=== PATIENT | male | born 1970 | race Caucasian/White ===

== ENCOUNTER 2019-12-16 13:03 | Emergency (ER) | payer OTHER ==
[2019-12-16 13:15] VITALS: BP 157/90
--- NOTE | 2019-12-16 13:22 | REPVR ---
PROCEDURE INFORMATION: Exam: CT Head Without Contrast Exam date and time: 12/16/2019 1:10 PM Age: 48 years old Clinical indication: Speech disturbance; Slurred speech; Additional info: Slurred speech, facial droop TECHNIQUE: Imaging protocol: Computed tomography of the head without contrast. Radiation optimization: All CT scans at this facility use at least one of these dose optimization techniques: automated exposure control; mA and/or kV adjustment per patient size (includes targeted exams where dose is matched to clinical indication); or iterative reconstruction. Other technique: STROKE PROTOCOL was implemented. COMPARISON: No relevant prior studies available. FINDINGS: Brain: No acute intracranial hemorrhage, cerebral edema, or midline shift. Cerebral ventricles: No ventriculomegaly. Bones/joints: No acute fracture. Paranasal sinuses: Visualized sinuses are unremarkable. No fluid levels. Mastoid air cells: Visualized mastoid air cells are well aerated. Vasculature: A branch of the left middle cerebral artery is hyperdense (insular dot sign), compatible with acute thrombosis. Soft tissues: Unremarkable. IMPRESSION: 1. A branch of the left middle cerebral artery is hyperdense (insular dot sign), compatible with acute thrombosis. 2. [facility] [place] Stroke Program Early CT Score (ASPECTS) = 10 Electronically signed by: Moe De La Cruz On 12/16/2019 13:22:05 PM
[2019-12-16] MEDS ORDERED: DOXY100C PO (13:29)
[2019-12-16 13:32] VITALS: BP 157/90
[2019-12-16 13:38] LABS: BASO % 0.5 % (0.0-1.0); EOS # 0.1 10^3/uL (0.0-0.5); EOS % 1.1 % (0.0-3.0); HEMATOCRIT 45.9 % (42.0-52.0); LYMPH # 3.4 10^3/uL (1.5-5.0); MEAN CORPUSCULAR HEMOGLOBIN 31.8 pg (27.0-33.0); MEAN CORPUSCULAR HGB CONC 34.9 g/dl (32.0-36.5); MEAN CORPUSCULAR VOLUME 91.3 fl (80.0-96.0); MONO # 0.6 10^3/uL (0.0-0.8); MONO % 7.6 % (0.0-5.0); NEUTROPHILS # 4.1 10^3/uL (1.5-8.5); NEUTROPHILS % 49.4 % (36.0-66.0); PLATELET COUNT, AUTOMATED 195 10^3/uL (150-450); RED BLOOD COUNT 5.03 10^6/uL (4.30-6.10); WHITE BLOOD COUNT 8.3 10^3/uL (4.0-10.0)
--- NOTE | 2019-12-16 13:41 | REPVR ---
PROCEDURE INFORMATION: Exam: XR Chest, 1 View Exam date and time: 12/16/2019 1:17 PM Age: 48 years old Clinical indication: Pain; Other: Question of CVA TECHNIQUE: Imaging protocol: XR of the chest Views: 1 view. COMPARISON: No relevant prior studies available. FINDINGS: Lungs: Unremarkable. No consolidation. Pleural space: Unremarkable. No pleural effusion. No pneumothorax. Heart/Mediastinum: Unremarkable. No cardiomegaly. Bones/joints: Unremarkable. IMPRESSION: No acute findings. Electronically signed by: Moe De La Cruz On 12/16/2019 13:41:27 PM
[2019-12-16 13:45] VITALS: BP 137/80
[2019-12-16] MEDS ORDERED: ALTEPLASE 100MG VIAL IV ONE (13:45)
[2019-12-16] MEDS ORDERED: ALTEPLASE RECOMBINANT IV ONE (13:45)
[2019-12-16] MEDS ORDERED: ALTEPLASE 100MG VIAL As Ordered ONE (13:46)
[2019-12-16 13:55] LABS: INR 0.91; PROTHROMBIN TIME 12.4 SECONDS (12.5-14.3)
[2019-12-16 13:56] LABS: PARTIAL THROMBOPLASTIN TIME 22.3 SECONDS (24.2-38.5)
[2019-12-16 14:01] VITALS: BP 149/73
[2019-12-16 14:09] LABS: CK-MB VALUE MASS < 1.0 NG/ML (<3.6); CPK CREATINE PHOSPHOKINASE 98 U/L (39-308); MB/CK RELATIVE INDEX 1.02 (< OR =4); TROPONIN I 0.02 NG/ML (< 0.10)
[2019-12-16 14:12] VITALS: BP 149/73
[2019-12-16] MEDS ORDERED: SODIUM CHLORIDE 0.9% 50 ML IV ONE (14:45)
--- NOTE | 2019-12-17 06:39 | ECGEPIP ---
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
== END 2019-12-16 14:15 | disposition short-term general hospital (02) ==
LOC: M ED 13:03
DX: I63.30 Cerebral infarction due to thrombosis of unspecified cerebral artery (principal); R00.0 Tachycardia, unspecified; F17.200 Nicotine dependence, unspecified, uncomplicated
CPT/HCPCS: 70450; 71045; 80047; 82550; 82553; 84484; 85025; 85610; 85730; 86850; 86900; 86901; 93005; 93041; 94760; 99285; J2997

== ENCOUNTER → 2020-03-08 | Outpatient (RCR) | payer OTHER ==
[~2020-03-08] MED LIST: DOXY100C PO
== END ==
LOC: M PT 02-20 08:55 → M OT 02-20 10:00 → M ST 02-20 11:00 → M OT 02-23 13:00 → M PT 02-23 13:45 → M ST 02-28 12:00 → M OT 02-28 13:00 → M PT 02-28 13:45 → M ST 03-01 10:22 → M PT 03-01 11:30 → M ST 03-06 12:00 → M OT 03-06 13:00 → M PT 03-06 14:15 → M ST 11:49 → M OT 13:00 → M PT 14:15
PROVIDERS: ATTEND Nurse Practitioner Family
DX: Z51.89 Encounter for other specified aftercare (principal); G81.91 Hemiplegia, unspecified affecting right dominant side; I63.9 Cerebral infarction, unspecified; R47.01 Aphasia

== ENCOUNTER 2020-04-05 13:28 | Outpatient (RCR) | payer OTHER | END 2020-04-08 | LOC: M PT 13:28 | PROVIDERS: ATTEND Nurse Practitioner Family | DX: G81.91 Hemiplegia, unspecified affecting right dominant side (principal); I63.9 Cerebral infarction, unspecified; R47.01 Aphasia ==

== ENCOUNTER → 2020-04-06 | Outpatient (CLI) | payer OTHER ==
--- NOTE | 2020-04-06 13:22 | REPPI ---
INDICATION: R29.898 RIGHT ARM WEAKNESS. COMPARISON: None. TECHNIQUE: Three views of the right shoulder are presented. FINDINGS: The right glenohumeral and acromioclavicular joints are normally aligned. Periarticular soft tissues are unremarkable. No erosive changes seen. No fracture is noted. Visualized right rib cage is intact. IMPRESSION: Negative radiographs of the right shoulder. <Electronically signed by Haresh Fleming > 04/06/20 0402
== END ==
LOC: M PLAIMG 10:38
PROVIDERS: ATTEND Nurse Practitioner Family
DX: R29.898 Other symptoms and signs involving the musculoskeletal system (principal)

== ENCOUNTER 2020-05-03 13:45 | Outpatient (RCR) | payer OTHER | END 2020-05-06 | LOC: M PT 13:45 | PROVIDERS: ATTEND Nurse Practitioner Family | DX: G81.91 Hemiplegia, unspecified affecting right dominant side (principal); I63.9 Cerebral infarction, unspecified; R47.01 Aphasia ==

== ENCOUNTER → 2020-05-04 | Outpatient (REF) | payer OTHER ==
[2020-05-04 12:35] LABS: ALBUMIN 4.6 GM/DL (3.2-5.2); ALT/SGPT 40 U/L (12-78); BILIRUBIN,TOTAL 0.5 MG/DL (0.2-1.0); BLOOD UREA NITROGEN 12 MG/DL (7-18); CALCIUM LEVEL 9.5 MG/DL (8.5-10.1); CARBON DIOXIDE LEVEL 29 MEQ/L (21-32); CHLORIDE LEVEL 106 MEQ/L (98-107); CHOLESTEROL LEVEL 111 MG/DL (<200); CHOLESTEROL RISK RATIO 2.265 (<5); CREATININE FOR GFR 0.74 MG/DL (0.70-1.30); FREE T4 1.06 NG/DL (0.76-1.46); GLOMERULAR FILTRATION RATE > 60.0 (>56); GLUCOSE, FASTING 101 MG/DL (70-100); HDL CHOLESTEROL 49 MG/DL (>40); LDL CHOLESTEROL 51 MG/DL (<100); NON-HDL-C 62 MG/DL; SODIUM LEVEL 141 MEQ/L (136-145); TOTAL PROTEIN 7.3 GM/DL (6.4-8.2); TRIGLYCERIDES LEVEL 55 MG/DL (<150)
[2020-05-04 13:27] LABS: HEMOGLOBIN A1c 5.8 %
[2020-05-07 19:06] LABS: C-PEPTIDE 1.5 ng/mL (1.1-4.4); ISLET CELL ANTIBODIES Negative (Neg:<1:1)
== END ==
LOC: M PLALAB 08:03
PROVIDERS: ATTEND Nurse Practitioner Family
DX: E11.9 Type 2 diabetes mellitus without complications (principal); E78.5 Hyperlipidemia, unspecified

== ENCOUNTER → 2020-05-15 | Outpatient (CLI) | payer OTHER ==
[~2020-05-15] MED LIST changes: +PROHANCE 279.3MG/ML 15ML VIAL As Ordered ONE
--- NOTE | 2020-05-15 09:44 | REP ---
INDICATION: RT SHOULDER INJURY. COMPARISON: Radiographs 04/06/2020. TECHNIQUE: Coronal oblique T1, T2 fat sat, sagittal oblique T2 fat sat, axial T2 fat sat, gradient echo. T1 fat sat in multiple planes prior to and following the intravenous administration of 15 mL ProHance. FINDINGS: Rotator cuff: There is a full-thickness tear at the anterior distal supraspinatus tendon. No other rotator cuff tendon tear is seen. Acromioclavicular joint: Mild hypertrophic degenerative changes are seen of the acromioclavicular joint with mild fluid in the joint. Acromion: Type 2 Biceps Tendon: In bicipital groove, there is mild surrounding fluid. Hill Sach's deformity: None. Deltoid muscle: No abnormal signal. Biceps labral complex: There is fraying and partial tearing of the biceps labral complex. Labrum: There is a diffuse SLAP tear, and a diffuse tear of the inferior labrum. Cartilage: There is mild chondromalacia at the glenohumeral joint. Bone marrow: There is a tiny subcortical subcentimeter cyst superolateral humeral head. No bone marrow edema is seen. Joint fluid: There is a very small joint effusion. There is a small amount of fluid in the subacromial/subdeltoid bursae. There is no abnormal enhancement or enhancing mass. IMPRESSION: Full-thickness tear anterior distal supraspinatus tendon. Fraying and partial tearing of the biceps labral complex with a diffuse SLAP tear. Diffuse tear of inferior labrum. Small amount of fluid in the subacromial/subdeltoid bursae. <Electronically signed by Alexy Romero > 05/15/20 0941
== END ==
LOC: M RAD 06:19
PROVIDERS: ATTEND Nurse Practitioner Family
DX: S46.211A Strain of muscle, fascia and tendon of other parts of biceps, right arm, initial encounter (principal); M75.121 Complete rotator cuff tear or rupture of right shoulder, not specified as traumatic
CPT/HCPCS: 73223; A9576

== ENCOUNTER 2020-06-05 13:44 | Outpatient (RCR) | payer OTHER ==
[~2020-06-05 13:44] MED LIST changes: -PROHANCE 279.3MG/ML 15ML VIAL As Ordered ONE
[2020-06-06] MEDS ORDERED: METF10004 PO (21:02)
[2020-06-06] MEDS ORDERED: ATOR80TA59 PO (21:02)
[2020-06-06] MEDS ORDERED: LANTINJ4 SC (21:02)
[2020-06-06] MEDS ORDERED: TIZA2CAP PO (21:02)
[2020-06-06] MEDS ORDERED: JARD1TAB PO (21:02)
[2020-06-06] MEDS ORDERED: ASPI81TA26 PO (21:02)
[2020-06-07] MEDS ORDERED: KEPP1TAB2 PO (01:17)
== END 2020-06-06 ==
LOC: M PT 13:44
PROVIDERS: ATTEND Nurse Practitioner Family
DX: G81.91 Hemiplegia, unspecified affecting right dominant side (principal); R47.01 Aphasia; M75.101 Unspecified rotator cuff tear or rupture of right shoulder, not specified as traumatic

== ENCOUNTER 2020-06-06 20:48 | Emergency (ER) | payer OTHER ==
[~2020-06-06] VITALS: Ht 175.3 cm; Wt 87.6 kg
[2020-06-06] MEDS ORDERED: ATOR80TA59 PO (21:02)
[2020-06-06] MEDS ORDERED: JARD1TAB PO (21:02)
[2020-06-06] MEDS ORDERED: METF10004 PO (21:02)
[2020-06-06] MEDS ORDERED: LANTINJ4 SC (21:02)
[2020-06-06] MEDS ORDERED: TIZA2CAP PO (21:02)
[2020-06-06] MEDS ORDERED: ASPI81TA26 PO (21:02)
[2020-06-06 21:30] LABS: BASO % 0.5 % (0.0-1.0); EOS # 0.1 10^3/uL (0.0-0.5); EOS % 1.6 % (0.0-3.0); HEMATOCRIT 44.8 % (42.0-52.0); HEMOGLOBIN 14.8 g/dl (13.5-17.5); LYMPH # 3.2 10^3/uL (1.5-5.0); LYMPH % 41.9 % (24.0-44.0); MEAN CORPUSCULAR VOLUME 93.9 fl (80.0-96.0); MONO # 0.7 10^3/uL (0.0-0.8); MONO % 8.9 % (2.0-8.0); NEUTROPHILS # 3.5 10^3/uL (1.5-8.5); PLATELET COUNT, AUTOMATED 202 10^3/uL (150-450); RED BLOOD COUNT 4.77 10^6/uL (4.30-6.10); WHITE BLOOD COUNT 7.5 10^3/uL (4.0-10.0)
[2020-06-06] MEDS ORDERED: levETIRAcetam INJection 1,000 MG in D5W 100 ML IV ONE (21:30)
[2020-06-06 21:40] LABS: INR 0.99; PROTHROMBIN TIME 13.3 SECONDS (12.5-14.3)
[2020-06-06 21:41] LABS: PARTIAL THROMBOPLASTIN TIME 22.5 SECONDS (24.2-38.5)
[2020-06-06 21:58] LABS: ALBUMIN 4.6 GM/DL (3.2-5.2); ALT/SGPT 49 U/L (12-78); BILIRUBIN,TOTAL 0.4 MG/DL (0.2-1.0); BLOOD UREA NITROGEN 14 MG/DL (7-18); CALCIUM LEVEL 9.6 MG/DL (8.5-10.1); CARBON DIOXIDE LEVEL 24 MEQ/L (21-32); CHLORIDE LEVEL 104 MEQ/L (98-107); CREATININE FOR GFR 0.93 MG/DL (0.70-1.30); ETHYL ALCOHOL (ETHANOL) < 0.003 % (0.000-0.010); GLOMERULAR FILTRATION RATE > 60.0 (>56); GLUCOSE, FASTING 139 MG/DL (70-100); POTASSIUM SERUM 4.5 MEQ/L (3.5-5.1); SODIUM LEVEL 139 MEQ/L (136-145); TOTAL PROTEIN 7.4 GM/DL (6.4-8.2)
--- NOTE | 2020-06-06 22:05 | REPVR ---
PROCEDURE INFORMATION: Exam: CT Head Without Contrast Exam date and time: 06/06/2020 9:42 PM Age: 49 years old Clinical indication: Other: Seizure TECHNIQUE: Imaging protocol: Computed tomography of the head without contrast. Radiation optimization: All CT scans at this facility use at least one of these dose optimization techniques: automated exposure control; mA and/or kV adjustment per patient size (includes targeted exams where dose is matched to clinical indication); or iterative reconstruction. COMPARISON: CT Head without contrast 12/16/2019 1:22 PM FINDINGS: Brain: New hypodensity within the left frontal lobe is likely encephalomalacia from an old left MCA infarct. There are calcifications within the area of encephalomalacia. An underlying neoplastic process is not excluded. Follow-up evaluation with CT or MRI is recommended. No shift of the midline structures. No acute intracranial hemorrhage. Cerebral ventricles: No ventriculomegaly. Bones/joints: Unremarkable. No acute fracture. Paranasal sinuses: Visualized sinuses are unremarkable. No fluid levels. Mastoid air cells: Visualized mastoid air cells are well aerated. Soft tissues: Unremarkable. IMPRESSION: 1. New hypodensity within the left frontal lobe with calcifications likely secondary to old left MCA infarct. An underlying neoplastic process is not completely excluded. Follow-up evaluation with CT or MRI is recommended. 2. No intracranial hemorrhage. Electronically signed by: Suman Erickson On 06/06/2020 22:05:54 PM
--- NOTE | 2020-06-06 22:06 | REPVR ---
PROCEDURE INFORMATION: Exam: XR Chest Exam date and time: 06/06/2020 9:09 PM Age: 49 years old Clinical indication: Other: Seizure TECHNIQUE: Imaging protocol: XR of the chest Views: 1 view. COMPARISON: CR PORTABLE CHEST X-RAY 12/16/2019 1:22 PM FINDINGS: Lungs: Unremarkable. No consolidation. Pleural spaces: Unremarkable. No pleural effusion. No pneumothorax. Heart/Mediastinum: Unremarkable. No cardiomegaly. Bones/joints: No acute bone or joint abnormality. IMPRESSION: No acute findings. Electronically signed by: Suman Erickson On 06/06/2020 22:06:39 PM
[2020-06-07 00:13] LABS: AMPHETAMINES LEVEL URINE NEGATIVE (NEGATIVE); BARBITURATES URINE NEGATIVE (NEGATIVE); BENZODIAZEPINES URINE NEGATIVE (NEGATIVE); CANNABINOIDS URINE NEGATIVE (NEGATIVE); COCAINE METABOLITE URINE NEGATIVE (NEGATIVE); METHADONE URINE NEGATIVE (NEGATIVE); OPIATES URINE NEGATIVE (NEGATIVE); PHENCYCLIDINE URINE NEGATIVE (NEGATIVE)
[2020-06-07] MEDS ORDERED: KEPP1TAB2 PO (01:17)
[2020-06-07 01:54] VITALS: BP 110/65
--- NOTE | 2020-06-07 07:14 | ECGEPIP ---
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
--- NOTE | 2020-06-08 09:00 | ED PDOC ---
Post-Departure Follow-Up ct head faxed to [facility] for fu Barbara Miguel MD Jun 08, 2020 09:00
== END 2020-06-07 02:02 | disposition home or self-care (01) ==
LOC: M ED 20:48
DX: R56.9 Unspecified convulsions (principal); Z86.73 Personal history of transient ischemic attack (TIA), and cerebral infarction without residual deficits; E78.5 Hyperlipidemia, unspecified; R94.02 Abnormal brain scan; Z79.4 Long term (current) use of insulin; Z79.82 Long term (current) use of aspirin; Z79.899 Other long term (current) drug therapy
CPT/HCPCS: 70450; 71045; 80053; 80307; 82077; 85025; 85610; 85730; 93005; 96365; 99285; J1953

== ENCOUNTER 2020-07-05 13:00 | Outpatient (RCR) | payer OTHER ==
[~2020-07-05 13:00] MED LIST changes: +ASPI81TA26 PO; +ATOR80TA59 PO; +JARD1TAB PO; +KEPP1TAB2 PO; +LANTINJ4 SC; +METF10004 PO; +TIZA2CAP PO
== END 2020-07-06 ==
LOC: M PT 13:00
PROVIDERS: ATTEND Nurse Practitioner Family
DX: I69.351 Hemiplegia and hemiparesis following cerebral infarction affecting right dominant side (principal); I69.320 Aphasia following cerebral infarction

== ENCOUNTER → 2020-07-27 | Outpatient (CLI) | payer OTHER ==
[2020-07-27 10:10] LABS: BLOOD UREA NITROGEN 14 MG/DL (7-18); CREATININE FOR GFR 0.79 MG/DL (0.70-1.30); GLOMERULAR FILTRATION RATE > 60.0 (>56)
== END ==
LOC: M LAB 08:23
PROVIDERS: ATTEND Psychiatry & Neurology Neurology
DX: I10 Essential (primary) hypertension (principal)

== ENCOUNTER 2020-08-02 13:45 | Outpatient (RCR) | payer OTHER, SELFPAY | END 2020-08-06 | LOC: M PT 13:45 | PROVIDERS: ATTEND Nurse Practitioner Family | DX: G81.91 Hemiplegia, unspecified affecting right dominant side (principal); I63.9 Cerebral infarction, unspecified; R47.01 Aphasia ==

== ENCOUNTER 2020-09-04 13:45 | Outpatient (RCR) | payer OTHER | END 2020-09-05 | LOC: M PT 13:45 | PROVIDERS: ATTEND Nurse Practitioner Family | DX: M75.101 Unspecified rotator cuff tear or rupture of right shoulder, not specified as traumatic (principal); G81.91 Hemiplegia, unspecified affecting right dominant side; I63.9 Cerebral infarction, unspecified; R47.01 Aphasia ==

== ENCOUNTER → 2020-09-07 | Outpatient (CLI) | payer OTHER ==
[~2020-09-07] MED LIST changes: +ASPI-161 PO; +INSULANT SC; +MULTCHW12 PO; +RA K500C PO; +TIZA6CAP PO
[2020-09-07 11:12] LABS: BLOOD UREA NITROGEN 15 MG/DL (7-18); CARBON DIOXIDE LEVEL 30 MEQ/L (21-32); CHLORIDE LEVEL 106 MEQ/L (98-107); CREATININE FOR GFR 0.59 MG/DL (0.70-1.30); GLOMERULAR FILTRATION RATE > 60.0 (>56); GLUCOSE, FASTING 113 MG/DL (70-100); POTASSIUM SERUM 4.2 MEQ/L (3.5-5.1); SODIUM LEVEL 143 MEQ/L (136-145)
[2020-09-07 11:13] LABS: ALBUMIN 4.4 GM/DL (3.2-5.2); ALT/SGPT 49 U/L (12-78); BILIRUBIN,TOTAL 0.6 MG/DL (0.2-1.0); CALCIUM LEVEL 9.4 MG/DL (8.5-10.1); CHOLESTEROL LEVEL 125 MG/DL (<200); CHOLESTEROL RISK RATIO 2.083 (<5); HDL CHOLESTEROL 60 MG/DL (>40); HEMOGLOBIN A1c 6.3 %; LDL CHOLESTEROL 53 MG/DL (<100); NON-HDL-C 65 MG/DL; TOTAL PROTEIN 7.2 GM/DL (6.4-8.2); TRIGLYCERIDES LEVEL 58 MG/DL (<150)
[2020-09-07 11:19] LABS: MALB URINE SIEMENS 13.1 MG/L; MAU/CREAT RATIO 10.3 MCG/MG (0.0-30.0)
== END ==
LOC: M PLALAB 08:07
PROVIDERS: ATTEND Nurse Practitioner Family
DX: E11.9 Type 2 diabetes mellitus without complications (principal); E78.5 Hyperlipidemia, unspecified; Z12.5 Encounter for screening for malignant neoplasm of prostate

== ENCOUNTER 2020-09-12 22:38 | Observation (INO) | payer OTHER ==
[~2020-09-12] VITALS: Ht 177.8 cm; Wt 76.3 kg
[~2020-09-12 22:38] MED LIST changes: -ASPI-161 PO; -DOXY100C PO; +DOXY100C3 PO; -INSULANT SC; -MULTCHW12 PO; -RA K500C PO; -TIZA6CAP PO
[2020-09-12] MEDS ORDERED: LORazepam 2 MG/ML VIAL As Ordered ONE (22:41)
[2020-09-12] MEDS ORDERED: NS 1,000 ML IV ONE (22:45)
[2020-09-12] MEDS ORDERED: LORazepam 2 MG/ML VIAL IM STA (22:45)
[2020-09-12] MEDS ORDERED: levETIRAcetam INJection 750 MG in D5W 100 ML IV ONE (22:45)
[2020-09-12 23:07] LABS: BASO # 0.1 10^3/uL (0.0-0.2); BASO % 0.4 % (0.0-1.0); EOS # 0.1 10^3/uL (0.0-0.5); HEMATOCRIT 50.5 % (42.0-52.0); LYMPH # 7.5 10^3/uL (1.5-5.0); LYMPH % 59.8 % (24.0-44.0); MEAN CORPUSCULAR HEMOGLOBIN 31.7 pg (27.0-33.0); MEAN CORPUSCULAR HGB CONC 31.7 g/dl (32.0-36.5); MEAN CORPUSCULAR VOLUME 100.2 fl (80.0-96.0); MONO # 1.2 10^3/uL (0.0-0.8); MONO % 9.3 % (2.0-8.0); NEUTROPHILS # 3.7 10^3/uL (1.5-8.5); NEUTROPHILS % 29.3 % (36.0-66.0); PLATELET COUNT, AUTOMATED 208 10^3/uL (150-450); RED BLOOD COUNT 5.04 10^6/uL (4.30-6.10)
[2020-09-12] MEDS ORDERED: LORazepam 2 MG/ML VIAL IV STA (23:08)
[2020-09-12 23:13] LABS: WHITE BLOOD COUNT 12.6 10^3/uL (4.0-10.0)
[2020-09-12 23:40] LABS: ACETAMINOPHEN LEVEL < 2.0 UG/ML (10.0-30.0); ALBUMIN 4.8 GM/DL (3.2-5.2); ALT/SGPT 56 U/L (12-78); BILIRUBIN,DIRECT 0.1 MG/DL (0.0-0.2); BILIRUBIN,TOTAL 0.5 MG/DL (0.2-1.0); BLOOD UREA NITROGEN 18 MG/DL (7-18); CALCIUM LEVEL 9.8 MG/DL (8.5-10.1); CARBON DIOXIDE LEVEL 16 MEQ/L (21-32); CHLORIDE LEVEL 106 MEQ/L (98-107); CREATININE FOR GFR 1.18 MG/DL (0.70-1.30); ETHYL ALCOHOL (ETHANOL) < 0.003 % (0.000-0.010); GLOMERULAR FILTRATION RATE > 60.0 (>56); GLUCOSE, FASTING 180 MG/DL (70-100); SALICYLATE LEVEL < 1.7 MG/DL (5.0-30.0); SODIUM LEVEL 143 MEQ/L (136-145)
[2020-09-12 23:58] LABS: RSV AMPLIFICATION NEGATIVE (NEGATIVE)
[2020-09-13] MEDS ORDERED: INSULANT SC (00:18)
[2020-09-13] MEDS ORDERED: METF10004 PO (00:18)
[2020-09-13] MEDS ORDERED: KEPP1TAB2 PO (00:18)
[2020-09-13] MEDS ORDERED: JARD1TAB PO (00:18)
[2020-09-13] MEDS ORDERED: MULTCHW12 PO (00:18)
[2020-09-13] MEDS ORDERED: ATOR80TA59 PO (00:18)
[2020-09-13] MEDS ORDERED: RA K500C PO (00:18)
[2020-09-13] MEDS ORDERED: TIZA6CAP PO (00:18)
[2020-09-13] MEDS ORDERED: ASPI-161 PO (00:18)
[2020-09-13] MEDS ORDERED: HOME MED LIST COMPLETE! XX SCH (00:20)
[2020-09-13] MEDS ORDERED: PHENYTOIN INJ 250 MG/5 ML VIAL (J1165) IV ONE (01:20)
[2020-09-13] MEDS ORDERED: PHENYTOIN IV ONE (01:30)
[2020-09-13] MEDS ORDERED: NS IV ONE (01:30)
[2020-09-13] MEDS ORDERED: MOM 30ML SUSPENSION UDC PO PRN (02:00)
[2020-09-13] MEDS ORDERED: ACETAMINOPHEN TAB 650MG DOSE (2X325MG) PO PRN (02:00)
[2020-09-13] MEDS ORDERED: tiZANidine 4 MG TAB PO PRN (02:00)
[2020-09-13] MEDS ORDERED: MAALOX 30 ML SUSP *UDC PO PRN (02:00)
[2020-09-13] MEDS ORDERED: PILL CUTTER 1 EACH XX PRN (02:20)
[2020-09-13 02:51] LABS: ABG BASE EXCESS -2.7 (-2.0-2.0); ABG HCO3 22.3 MEQ/L (22.0-26.0); ABG O2 SATURATION 98.1 % (95.0-99.0); ABG PARTIAL PRESSURE CO2 39.7 mmHg (35.0-45.0); ABG PARTIAL PRESSURE O2 127.7 mmHg (75.0-100.0); ABG STANDARD HCO3 22.2 MEQ/L (22.0-26.0); ABG TOTAL CO2 23.6 MEQ/L (22.0-29.0); ABG pH (ARTERIAL) 7.368 UNITS (7.350-7.450)
[2020-09-13] MEDS: NS 1,000 ML IV SCH ×2 (03:19→10:09)
[2020-09-13] MEDS ORDERED: DEXTROSE 50% 50 ML SYRINGE IV PRN (03:20)
[2020-09-13] MEDS ORDERED: GLUCOSE 4GM CHEW TABLET PO PRN (03:20)
[2020-09-13] MEDS ORDERED: GLUCAGON INJ 1MG VIAL SC PRN (03:20)
[2020-09-13 03:22] LABS: AMPHETAMINES LEVEL URINE NEGATIVE (NEGATIVE); BARBITURATES URINE NEGATIVE (NEGATIVE); BENZODIAZEPINES URINE NEGATIVE (NEGATIVE); CANNABINOIDS URINE NEGATIVE (NEGATIVE); COCAINE METABOLITE URINE NEGATIVE (NEGATIVE); METHADONE URINE NEGATIVE (NEGATIVE); OPIATES URINE NEGATIVE (NEGATIVE); PHENCYCLIDINE URINE NEGATIVE (NEGATIVE)
[2020-09-13] MEDS ORDERED: HumaLOG INSULIN (NovoLOG) PER UNIT SC SCH ×2 (06:00→21:00)
[2020-09-13 07:42] LABS: HEMATOCRIT 40.3 % (42.0-52.0); MEAN CORPUSCULAR HEMOGLOBIN 31.9 pg (27.0-33.0); MEAN CORPUSCULAR HGB CONC 33.7 g/dl (32.0-36.5); MEAN CORPUSCULAR VOLUME 94.6 fl (80.0-96.0); PLATELET COUNT, AUTOMATED 158 10^3/uL (150-450); RED BLOOD COUNT 4.26 10^6/uL (4.30-6.10); WHITE BLOOD COUNT 8.9 10^3/uL (4.0-10.0)
[2020-09-13 07:48] LABS: HEMOGLOBIN 13.6 g/dl (13.5-17.5)
[2020-09-13 08:07] LABS: BLOOD UREA NITROGEN 15 MG/DL (7-18); CALCIUM LEVEL 8.4 MG/DL (8.5-10.1); CARBON DIOXIDE LEVEL 26 MEQ/L (21-32); CHLORIDE LEVEL 109 MEQ/L (98-107); CREATININE FOR GFR 0.63 MG/DL (0.70-1.30); GLOMERULAR FILTRATION RATE > 60.0 (>56); GLUCOSE, FASTING 122 MG/DL (70-100); MAGNESIUM LEVEL 2.1 MG/DL (1.8-2.4); POTASSIUM SERUM 4.1 MEQ/L (3.5-5.1); SODIUM LEVEL 141 MEQ/L (136-145)
[2020-09-13] MEDS: DOCUSATE SODIUM 100MG CAPSULE PO SCH ×2 (09:47→20:23)
[2020-09-13] MEDS: ASPIRIN 81MG ENTERIC TABLET PO SCH (09:47)
[2020-09-13] MEDS: PHENYTOIN ER 100 MG CAP PO SCH ×2 (09:48→20:22)
[2020-09-13] MEDS: HumaLOG INSULIN (NovoLOG) PER UNIT SC SCH ×2 (12:00→17:57)
[2020-09-13 17:30] VITALS: BP 107/62
[2020-09-13 19:41] VITALS: BP 126/65
[2020-09-13] MEDS: levETIRAcetam 250MG TABLET (KEPPRA) PO SCH (20:23)
[2020-09-13] MEDS ORDERED: LEVEMIR (INSULIN DETEMIR) 1 UNITS/0.01ML SC SCH (21:00)
[2020-09-13] MEDS ORDERED: ATORVASTATIN 20 MG TAB PO SCH (21:00)
[2020-09-14 00:14] VITALS: BP 132/69
[2020-09-14 03:41] VITALS: BP 119/71
[2020-09-14 05:04] LABS: HEMATOCRIT 39.9 % (42.0-52.0); HEMOGLOBIN 13.5 g/dl (13.5-17.5); MEAN CORPUSCULAR HEMOGLOBIN 31.5 pg (27.0-33.0); MEAN CORPUSCULAR HGB CONC 33.8 g/dl (32.0-36.5); MEAN CORPUSCULAR VOLUME 93.2 fl (80.0-96.0); PLATELET COUNT, AUTOMATED 154 10^3/uL (150-450); RED BLOOD COUNT 4.28 10^6/uL (4.30-6.10); WHITE BLOOD COUNT 7.6 10^3/uL (4.0-10.0)
[2020-09-14 05:27] LABS: BLOOD UREA NITROGEN 8 MG/DL (7-18); CALCIUM LEVEL 8.6 MG/DL (8.5-10.1); CARBON DIOXIDE LEVEL 25 MEQ/L (21-32); CHLORIDE LEVEL 110 MEQ/L (98-107); GLOMERULAR FILTRATION RATE > 60.0 (>56); GLUCOSE, FASTING 83 MG/DL (70-100); POTASSIUM SERUM 3.5 MEQ/L (3.5-5.1); SODIUM LEVEL 144 MEQ/L (136-145)
[2020-09-14] MEDS: HumaLOG INSULIN (NovoLOG) PER UNIT SC SCH (07:27)
[2020-09-14 08:00] VITALS: BP 113/59
[2020-09-14] MEDS: ASPIRIN 81MG ENTERIC TABLET PO SCH (08:28)
[2020-09-14] MEDS: PHENYTOIN ER 100 MG CAP PO SCH (08:28)
[2020-09-14] MEDS: levETIRAcetam 250MG TABLET (KEPPRA) PO SCH (08:28)
[2020-09-14] MEDS: DOCUSATE SODIUM 100MG CAPSULE PO SCH (08:29)
[2020-09-14] MEDS ORDERED: KEPP250T5 PO (09:36)
[2020-09-14] MEDS ORDERED: DILA100C PO (09:36)
== END 2020-09-14 12:00 | disposition home or self-care (01) ==
LOC: M ED 22:38 → M ED INP 23:39 → ENRESERV 09-13 14:52 → M PCU 09-13 16:39
PROVIDERS: ADMIT Internal Medicine; ATTEND Internal Medicine
DX: G40.409 Other generalized epilepsy and epileptic syndromes, not intractable, without status epilepticus (principal); E11.9 Type 2 diabetes mellitus without complications; E78.5 Hyperlipidemia, unspecified; I69.392 Facial weakness following cerebral infarction; I69.320 Aphasia following cerebral infarction; I69.351 Hemiplegia and hemiparesis following cerebral infarction affecting right dominant side; Z79.899 Other long term (current) drug therapy; Z79.82 Long term (current) use of aspirin; Z79.4 Long term (current) use of insulin; Z87.891 Personal history of nicotine dependence
CPT/HCPCS: 36415; 36600; 70450; 71045; 80048; 80076; 80143; 80180; 80307; 82077; 82803; 83735; 84443; 85025; 85027; 87631; 93005; 93041; 94760; 95819; 96365; 96367; 96372; 96375; 99285; J1165; J1953; J2060

== ENCOUNTER 2020-10-04 11:11 | Outpatient (RCR) | payer OTHER ==
[~2020-10-04 11:11] MED LIST changes: +ASPI-161 PO; +DILA100C PO; +DOXY100C PO; -DOXY100C3 PO; +INSULANT SC; +KEPP250T5 PO; +MULTCHW12 PO; +RA K500C PO; +TIZA6CAP PO
== END 2020-10-06 ==
LOC: M ST 11:11
PROVIDERS: ATTEND Nurse Practitioner Family
DX: I69.391 Dysphagia following cerebral infarction (principal); I69.320 Aphasia following cerebral infarction

== ENCOUNTER → 2020-10-15 | Outpatient (CLI) | payer OTHER ==
[~2020-10-15] MED LIST changes: -DOXY100C PO; +DOXY100C3 PO
[2020-10-15 17:21] LABS: BASO # 0.1 10^3/uL (0.0-0.2); BASO % 0.8 % (0.0-1.0); EOS # 0.1 10^3/uL (0.0-0.5); EOS % 1.2 % (0.0-3.0); HEMATOCRIT 43.7 % (42.0-52.0); HEMOGLOBIN 14.9 g/dl (13.5-17.5); LYMPH # 2.1 10^3/uL (1.5-5.0); LYMPH % 36.1 % (24.0-44.0); MEAN CORPUSCULAR HEMOGLOBIN 32.6 pg (27.0-33.0); MEAN CORPUSCULAR HGB CONC 34.1 g/dl (32.0-36.5); MEAN CORPUSCULAR VOLUME 95.6 fl (80.0-96.0); MONO # 0.7 10^3/uL (0.0-0.8); MONO % 12.5 % (2.0-8.0); NEUTROPHILS # 2.9 10^3/uL (1.5-8.5); NEUTROPHILS % 49.1 % (36.0-66.0); PLATELET COUNT, AUTOMATED 173 10^3/uL (150-450); RED BLOOD COUNT 4.57 10^6/uL (4.30-6.10); WHITE BLOOD COUNT 5.9 10^3/uL (4.0-10.0)
[2020-10-15 17:33] LABS: ALBUMIN 4.3 GM/DL (3.2-5.2); ALT/SGPT 36 U/L (12-78); BILIRUBIN,TOTAL 0.2 MG/DL (0.2-1.0); BLOOD UREA NITROGEN 10 MG/DL (7-18); CALCIUM LEVEL 9.6 MG/DL (8.5-10.1); CARBON DIOXIDE LEVEL 30 MEQ/L (21-32); CHLORIDE LEVEL 106 MEQ/L (98-107); CREATININE FOR GFR 0.69 MG/DL (0.70-1.30); GLOMERULAR FILTRATION RATE > 60.0 (>56); GLUCOSE, FASTING 96 MG/DL (70-100); PHENYTOIN (DILANTIN) 9.2 UG/ML (10.0-20.0); POTASSIUM SERUM 3.8 MEQ/L (3.5-5.1); SODIUM LEVEL 142 MEQ/L (136-145); TOTAL PROTEIN 7.2 GM/DL (6.4-8.2)
== END ==
LOC: M PLALAB 13:57
PROVIDERS: ATTEND Psychiatry & Neurology Neurology
DX: R56.9 Unspecified convulsions (principal)

== ENCOUNTER → 2020-11-06 | Outpatient (RCR) | payer OTHER | LOC: M ST 10-09 11:03 → M PT 10-09 11:05 → M OT 10-09 11:05 → M ST 10-11 12:00 → M PT 10-11 13:22 → M ST 10-16 11:01 → M OT 10-16 11:01 → M PT 10-16 11:02 → M ST 10-18 10:18 → M OT 10-18 10:18 → M PT 10-23 10:25 → M OT 10-23 10:30 → M ST 10-23 10:31 → M PT 10-25 10:09 → M ST 10-25 10:10 → M OT 10-25 10:10 → M PT 10-30 10:09 → M OT 10-30 10:10 → M ST 10-30 10:10 → M PT 11-01 10:12 → M OT 11-01 11:15 → M ST 11-01 11:41 → M PT 10:15 → M ST 10:26 → M OT 10:26 | PROVIDERS: ATTEND Nurse Practitioner Family | DX: I69.351 Hemiplegia and hemiparesis following cerebral infarction affecting right dominant side (principal); I69.320 Aphasia following cerebral infarction ==

== ENCOUNTER → 2020-12-06 | Outpatient (RCR) | payer OTHER | LOC: M ST 11-08 10:12 → M OT 11-08 10:12 → M PT 11-08 10:15 → M ST 11-13 10:13 → M PT 11-13 10:13 → M OT 11-13 10:13 → M PT 11-15 10:12 → M OT 11-15 10:13 → M ST 11-15 10:13 → M PT 11-20 10:15 → M OT 11-20 10:17 → M ST 11-20 10:18 → M OT 11-22 10:11 → M PT 11-22 10:11 → M ST 11-22 10:11 → M OT 11-27 10:15 → M PT 11-27 10:15 → M ST 11-29 10:13 → M OT 11-29 10:13 → M PT 12-04 10:08 → M ST 12-04 10:08 → M OT 12-04 10:08 → M PT 10:12 → M OT 10:30 → M ST 10:30 | PROVIDERS: ATTEND Nurse Practitioner Family | DX: I69.351 Hemiplegia and hemiparesis following cerebral infarction affecting right dominant side (principal); I69.320 Aphasia following cerebral infarction; M75.101 Unspecified rotator cuff tear or rupture of right shoulder, not specified as traumatic ==

== ENCOUNTER 2021-01-03 10:55 | Outpatient (RCR) | payer OTHER | END 2021-01-06 | LOC: M ST 10:55 → M OT 10:55 | PROVIDERS: ATTEND Nurse Practitioner Family | DX: G81.91 Hemiplegia, unspecified affecting right dominant side (principal); I63.9 Cerebral infarction, unspecified; R47.01 Aphasia; M75.101 Unspecified rotator cuff tear or rupture of right shoulder, not specified as traumatic ==

== ENCOUNTER → 2021-01-21 | Outpatient (CLI) | payer OTHER ==
[2021-01-21 16:39] LABS: HEMOGLOBIN A1c 5.8 %
[2021-01-21 16:56] LABS: CREATININE, URINE 45.1 MG/DL; MALB URINE SIEMENS < 5.0 MG/L
[2021-01-21 17:00] LABS: ALBUMIN 4.5 GM/DL (3.2-5.2); ALT/SGPT 39 U/L (12-78); BILIRUBIN,TOTAL 0.2 MG/DL (0.2-1.0); BLOOD UREA NITROGEN 11 MG/DL (7-18); CARBON DIOXIDE LEVEL 29 MEQ/L (21-32); CHLORIDE LEVEL 104 MEQ/L (98-107); CHOLESTEROL LEVEL 163 MG/DL (<200); CHOLESTEROL RISK RATIO 2.469 (<5); CREATININE FOR GFR 0.67 MG/DL (0.70-1.30); GLOMERULAR FILTRATION RATE > 60.0 (>56); GLUCOSE, FASTING 123 MG/DL (70-100); HDL CHOLESTEROL 66 MG/DL (>40); LDL CHOLESTEROL 80 MG/DL (<100); NON-HDL-C 97 MG/DL; POTASSIUM SERUM 4.8 MEQ/L (3.5-5.1); SODIUM LEVEL 140 MEQ/L (136-145); TOTAL PROTEIN 7.4 GM/DL (6.4-8.2); TRIGLYCERIDES LEVEL 87 MG/DL (<150)
== END ==
LOC: M PLALAB 12:26
PROVIDERS: ATTEND Nurse Practitioner Family
DX: E11.9 Type 2 diabetes mellitus without complications (principal); E78.5 Hyperlipidemia, unspecified

== ENCOUNTER → 2021-02-05 | Outpatient (RCR) | payer OTHER | LOC: M OT 01-08 10:14 → M PT 01-08 10:15 → M ST 01-08 10:17 → M OT 01-10 10:06 → M PT 01-10 10:06 → M ST 01-10 10:07 → M PT 01-15 10:00 → M ST 01-15 11:00 → M PT 01-17 10:10 → M OT 01-17 10:11 → M PT 01-22 10:15 → M OT 01-22 10:18 → M ST 01-22 10:19 → M PT 01-24 10:00 → M ST 01-24 10:01 → M OT 01-24 10:01 → M ST 01-29 09:57 → M OT 01-29 09:57 → M PT 01-29 09:57 → M ST 10:08 → M OT 10:08 | PROVIDERS: ATTEND Nurse Practitioner Family | DX: I69.351 Hemiplegia and hemiparesis following cerebral infarction affecting right dominant side (principal); I69.320 Aphasia following cerebral infarction ==

== ENCOUNTER 2021-03-07 10:12 | Outpatient (RCR) | payer OTHER | END 2021-03-08 | LOC: M PT 10:12 → M OT 10:12 → M ST 10:12 | PROVIDERS: ATTEND Nurse Practitioner Family | DX: G81.91 Hemiplegia, unspecified affecting right dominant side (principal); M75.101 Unspecified rotator cuff tear or rupture of right shoulder, not specified as traumatic; I63.9 Cerebral infarction, unspecified; R47.01 Aphasia ==

== ENCOUNTER 2021-04-04 12:00 | Outpatient (RCR) | payer OTHER | END 2021-04-08 | LOC: M ST 12:00 | PROVIDERS: ATTEND Nurse Practitioner Family | DX: G81.91 Hemiplegia, unspecified affecting right dominant side (principal); I63.9 Cerebral infarction, unspecified; R47.01 Aphasia ==

== ENCOUNTER 2021-05-02 10:24 | Outpatient (RCR) | payer OTHER | END 2021-05-06 | LOC: M ST 10:24 | PROVIDERS: ATTEND Nurse Practitioner Family | DX: G81.91 Hemiplegia, unspecified affecting right dominant side (principal); I63.9 Cerebral infarction, unspecified; R74.01 Elevation of levels of liver transaminase levels; M75.101 Unspecified rotator cuff tear or rupture of right shoulder, not specified as traumatic ==

== ENCOUNTER → 2021-06-06 | Outpatient (RCR) | payer OTHER | LOC: M ST 05-07 10:22 | PROVIDERS: ATTEND Nurse Practitioner Family | DX: G81.91 Hemiplegia, unspecified affecting right dominant side (principal); I63.9 Cerebral infarction, unspecified; R47.01 Aphasia; M75.101 Unspecified rotator cuff tear or rupture of right shoulder, not specified as traumatic ==

== ENCOUNTER 2021-07-04 10:23 | Outpatient (RCR) | payer OTHER | END 2021-07-06 | LOC: M ST 10:23 | PROVIDERS: ATTEND Nurse Practitioner Family | DX: G81.91 Hemiplegia, unspecified affecting right dominant side (principal) ==

== ENCOUNTER → 2021-07-12 | Outpatient (CLI) | payer OTHER ==
[2021-07-12 10:14] LABS: BASO % 0.5 % (0.0-1.0); EOS # 0.1 10^3/uL (0.0-0.5); EOS % 1.1 % (0.0-3.0); HEMATOCRIT 44.2 % (42.0-52.0); HEMOGLOBIN 14.9 g/dl (13.5-17.5); LYMPH % 36.4 % (24.0-44.0); MEAN CORPUSCULAR HEMOGLOBIN 32.1 pg (27.0-33.0); MEAN CORPUSCULAR HGB CONC 33.7 g/dl (32.0-36.5); MEAN CORPUSCULAR VOLUME 95.3 fl (80.0-96.0); MONO # 0.6 10^3/uL (0.0-0.8); MONO % 10.6 % (2.0-8.0); NEUTROPHILS # 2.8 10^3/uL (1.5-8.5); NEUTROPHILS % 51.2 % (36.0-66.0); PLATELET COUNT, AUTOMATED 176 10^3/uL (150-450); RED BLOOD COUNT 4.64 10^6/uL (4.30-6.10); WHITE BLOOD COUNT 5.5 10^3/uL (4.0-10.0)
[2021-07-12 10:39] LABS: HEMOGLOBIN A1c 5.7 %
[2021-07-12 10:44] LABS: ALBUMIN 4.4 GM/DL (3.2-5.2); ALT/SGPT 34 U/L (12-78); BILIRUBIN,TOTAL 0.3 MG/DL (0.2-1.0); BLOOD UREA NITROGEN 16 MG/DL (7-18); CALCIUM LEVEL 9.9 MG/DL (8.5-10.1); CARBON DIOXIDE LEVEL 30 MEQ/L (21-32); CHLORIDE LEVEL 103 MEQ/L (98-107); CHOLESTEROL LEVEL 155 MG/DL (<200); CREATININE FOR GFR 0.53 MG/DL (0.70-1.30); GLOMERULAR FILTRATION RATE > 60.0 (>56); GLUCOSE, FASTING 102 MG/DL (70-100); HDL CHOLESTEROL 61 MG/DL (>40); LDL CHOLESTEROL 82 MG/DL (<100); NON-HDL-C 94 MG/DL; POTASSIUM SERUM 4.1 MEQ/L (3.5-5.1); SODIUM LEVEL 142 MEQ/L (136-145); TOTAL PROTEIN 7.1 GM/DL (6.4-8.2); TRIGLYCERIDES LEVEL 62 MG/DL (<150)
[2021-07-12 10:51] LABS: CREATININE, URINE 92.6 MG/DL; MAU/CREAT RATIO 12.9 MCG/MG (0.0-30.0)
== END ==
LOC: M PLALAB 08:08
PROVIDERS: ATTEND Nurse Practitioner Family
DX: E78.5 Hyperlipidemia, unspecified (principal); E11.9 Type 2 diabetes mellitus without complications

== ENCOUNTER → 2021-08-06 | Outpatient (RCR) | payer OTHER | LOC: M ST 07-09 10:19 → M PT 07-23 09:59 → M OT 07-23 10:00 → M ST 07-25 09:51 | PROVIDERS: ATTEND Nurse Practitioner Family | DX: G81.91 Hemiplegia, unspecified affecting right dominant side (principal); I63.9 Cerebral infarction, unspecified; R47.01 Aphasia ==

== ENCOUNTER → 2021-09-05 | Outpatient (RCR) | payer OTHER | LOC: M ST 08-13 10:25 | PROVIDERS: ATTEND Nurse Practitioner Family | DX: I69.320 Aphasia following cerebral infarction (principal); I69.351 Hemiplegia and hemiparesis following cerebral infarction affecting right dominant side ==

== ENCOUNTER 2021-10-03 10:21 | Outpatient (RCR) | payer OTHER | END 2021-10-06 | LOC: M ST 10:21 | PROVIDERS: ATTEND Nurse Practitioner Family | DX: G81.91 Hemiplegia, unspecified affecting right dominant side (principal); I63.9 Cerebral infarction, unspecified; R47.01 Aphasia ==

== ENCOUNTER 2021-10-29 10:30 | Outpatient (RCR) | payer OTHER | END 2021-11-06 | LOC: M ST 10:30 | PROVIDERS: ATTEND Nurse Practitioner Family | DX: I69.351 Hemiplegia and hemiparesis following cerebral infarction affecting right dominant side (principal); I69.320 Aphasia following cerebral infarction ==

== ENCOUNTER 2021-12-03 10:30 | Outpatient (RCR) | payer OTHER | END 2021-12-06 | LOC: M ST 10:30 | PROVIDERS: ATTEND Nurse Practitioner Family | DX: I69.351 Hemiplegia and hemiparesis following cerebral infarction affecting right dominant side (principal); I69.320 Aphasia following cerebral infarction ==

== ENCOUNTER → 2021-12-06 | Outpatient (CLI) | payer OTHER ==
[2021-12-06 16:24] LABS: BASO % 0.4 % (0.0-1.0); EOS # 0.1 10^3/uL (0.0-0.5); EOS % 1.2 % (0.0-3.0); LYMPH # 2.4 10^3/uL (1.5-5.0); LYMPH % 31.4 % (24.0-44.0); MEAN CORPUSCULAR HEMOGLOBIN 32.1 pg (27.0-33.0); MEAN CORPUSCULAR HGB CONC 33.3 g/dl (32.0-36.5); MEAN CORPUSCULAR VOLUME 96.2 fl (80.0-96.0); MONO # 0.8 10^3/uL (0.0-0.8); MONO % 10.7 % (2.0-8.0); NEUTROPHILS # 4.4 10^3/uL (1.5-8.5); PLATELET COUNT, AUTOMATED 207 10^3/uL (150-450); RED BLOOD COUNT 4.68 10^6/uL (4.30-6.10); WHITE BLOOD COUNT 7.8 10^3/uL (4.0-10.0)
[2021-12-06 17:05] LABS: ALBUMIN 4.5 GM/DL (3.2-5.2); ALT/SGPT 40 U/L (12-78); BILIRUBIN,TOTAL 0.2 MG/DL (0.2-1.0); BLOOD UREA NITROGEN 11 MG/DL (7-18); CALCIUM LEVEL 9.8 MG/DL (8.5-10.1); CARBON DIOXIDE LEVEL 31 MEQ/L (21-32); CHLORIDE LEVEL 106 MEQ/L (98-107); CREATININE FOR GFR 0.65 MG/DL (0.70-1.30); GLOMERULAR FILTRATION RATE > 60.0 (>56); GLUCOSE, FASTING 139 MG/DL (70-100); POTASSIUM SERUM 4.6 MEQ/L (3.5-5.1); SODIUM LEVEL 140 MEQ/L (136-145); TOTAL PROTEIN 7.4 GM/DL (6.4-8.2)
== END ==
LOC: M PLALAB 12:18
PROVIDERS: ATTEND Psychiatry & Neurology Neurology
DX: R56.9 Unspecified convulsions (principal)

== ENCOUNTER 2021-12-31 10:25 | Outpatient (RCR) | payer OTHER | END 2022-01-06 23:59 | disposition home or self-care (01) | LOC: M ST 10:25 | PROVIDERS: ATTEND Nurse Practitioner Family | DX: G81.91 Hemiplegia, unspecified affecting right dominant side (principal); I63.9 Cerebral infarction, unspecified; R47.01 Aphasia ==

== ENCOUNTER → 2022-01-10 | Outpatient (CLI) | payer OTHER ==
[2022-01-10 10:22] LABS: BASO % 0.3 % (0.0-1.0); EOS # 0.1 10^3/uL (0.0-0.5); EOS % 1.2 % (0.0-3.0); HEMATOCRIT 44.4 % (42.0-52.0); HEMOGLOBIN 14.8 g/dl (13.5-17.5); LYMPH % 33.6 % (24.0-44.0); MEAN CORPUSCULAR HEMOGLOBIN 32.5 pg (27.0-33.0); MEAN CORPUSCULAR HGB CONC 33.3 g/dl (32.0-36.5); MEAN CORPUSCULAR VOLUME 97.6 fl (80.0-96.0); MONO # 0.5 10^3/uL (0.0-0.8); MONO % 8.6 % (2.0-8.0); NEUTROPHILS # 3.3 10^3/uL (1.5-8.5); NEUTROPHILS % 56.1 % (36.0-66.0); PLATELET COUNT, AUTOMATED 189 10^3/uL (150-450); RED BLOOD COUNT 4.55 10^6/uL (4.30-6.10); WHITE BLOOD COUNT 5.9 10^3/uL (4.0-10.0)
[2022-01-10 11:05] LABS: ALBUMIN 4.2 GM/DL (3.2-5.2); ALT/SGPT 42 U/L (12-78); BILIRUBIN,TOTAL 0.3 MG/DL (0.2-1.0); BLOOD UREA NITROGEN 10 MG/DL (7-18); CALCIUM LEVEL 9.3 MG/DL (8.5-10.1); CARBON DIOXIDE LEVEL 31 MEQ/L (21-32); CHLORIDE LEVEL 105 MEQ/L (98-107); CHOLESTEROL LEVEL 159 MG/DL (<200); CHOLESTEROL RISK RATIO 2.148 (<5); CREATININE FOR GFR 0.54 MG/DL (0.70-1.30); GLOMERULAR FILTRATION RATE > 60.0 (>56); GLUCOSE, FASTING 119 MG/DL (70-100); HDL CHOLESTEROL 74 MG/DL (>40); LDL CHOLESTEROL 68 MG/DL (<100); NON-HDL-C 85 MG/DL; PHENYTOIN (DILANTIN) 9.5 UG/ML (10.0-20.0); POTASSIUM SERUM 4.1 MEQ/L (3.5-5.1); SODIUM LEVEL 139 MEQ/L (136-145); TOTAL PROTEIN 7.3 GM/DL (6.4-8.2); TRIGLYCERIDES LEVEL 87 MG/DL (<150)
[2022-01-10 11:14] LABS: CREATININE, URINE 86.3 MG/DL; MAU/CREAT RATIO 13.9 MCG/MG (0.0-30.0)
[2022-01-10 15:38] LABS: HEMOGLOBIN A1c 5.8 %
== END ==
LOC: M PLALAB 09:06
PROVIDERS: ATTEND Nurse Practitioner Family
DX: E78.5 Hyperlipidemia, unspecified (principal); E11.9 Type 2 diabetes mellitus without complications; R56.9 Unspecified convulsions

== ENCOUNTER 2022-02-04 10:25 | Outpatient (RCR) | payer OTHER | END 2022-02-05 23:59 | disposition home or self-care (01) | LOC: M ST 10:25 | PROVIDERS: ATTEND Nurse Practitioner Family | DX: G81.91 Hemiplegia, unspecified affecting right dominant side (principal); I63.9 Cerebral infarction, unspecified; R47.01 Aphasia ==

== ENCOUNTER 2022-03-06 10:30 | Outpatient (RCR) | payer OTHER | END 2022-03-08 | LOC: M ST 10:30 | PROVIDERS: ATTEND Nurse Practitioner Family | DX: G81.91 Hemiplegia, unspecified affecting right dominant side (principal); R47.01 Aphasia ==

== ENCOUNTER → 2022-04-08 | Outpatient (RCR) | payer OTHER | LOC: M ST 03-13 10:24 | PROVIDERS: ATTEND Nurse Practitioner Family | DX: G81.91 Hemiplegia, unspecified affecting right dominant side (principal); I63.9 Cerebral infarction, unspecified; R47.01 Aphasia ==

== ENCOUNTER → 2022-05-06 | Outpatient (RCR) | payer OTHER | LOC: M ST 04-10 10:23 | PROVIDERS: ATTEND Nurse Practitioner Family | DX: G81.91 Hemiplegia, unspecified affecting right dominant side (principal); R47.01 Aphasia ==

== ENCOUNTER 2022-05-27 10:30 | Outpatient (RCR) | payer OTHER | END 2022-06-06 | LOC: M ST 10:30 | PROVIDERS: ATTEND Nurse Practitioner Family | DX: G81.91 Hemiplegia, unspecified affecting right dominant side (principal); I63.9 Cerebral infarction, unspecified; R47.01 Aphasia ==

== ENCOUNTER 2022-07-03 10:30 | Outpatient (RCR) | payer MEDICARE | END 2022-07-06 | LOC: M ST 10:30 | PROVIDERS: ATTEND Nurse Practitioner Family | DX: I69.351 Hemiplegia and hemiparesis following cerebral infarction affecting right dominant side (principal); I69.320 Aphasia following cerebral infarction ==

== ENCOUNTER → 2022-07-25 | Outpatient (CLI) | payer MEDICARE ==
[2022-07-25 11:10] LABS: BASO % 0.3 % (0.0-1.0); EOS # 0.1 10^3/uL (0.0-0.5); EOS % 0.8 % (0.0-3.0); HEMATOCRIT 44.9 % (42.0-52.0); HEMOGLOBIN 15.2 g/dl (13.5-17.5); LYMPH # 2.1 10^3/uL (1.5-5.0); LYMPH % 33.2 % (24.0-44.0); MEAN CORPUSCULAR HEMOGLOBIN 32.7 pg (27.0-33.0); MEAN CORPUSCULAR HGB CONC 33.9 g/dl (32.0-36.5); MEAN CORPUSCULAR VOLUME 96.6 fl (80.0-96.0); MONO # 0.5 10^3/uL (0.0-0.8); MONO % 8.7 % (2.0-8.0); NEUTROPHILS # 3.5 10^3/uL (1.5-8.5); NEUTROPHILS % 56.8 % (36.0-66.0); PLATELET COUNT, AUTOMATED 188 10^3/uL (150-450); RED BLOOD COUNT 4.65 10^6/uL (4.30-6.10); WHITE BLOOD COUNT 6.2 10^3/uL (4.0-10.0)
[2022-07-25 11:40] LABS: ALBUMIN 4.6 G/DL (3.2-5.2); ALKALINE PHOSPHATASE 59 U/L (46-116); ALT/SGPT 42 U/L (7.0-40); AST/SGOT 22 U/L (<34); BILIRUBIN,TOTAL 0.4 MG/DL (0.3-1.2); BLOOD UREA NITROGEN 17 MG/DL (9-23); CALCIUM LEVEL 9.4 MG/DL (8.5-10.1); CARBON DIOXIDE LEVEL 31 MMOL/L (20-31); CHLORIDE LEVEL 102 MMOL/L (98-107); CHOLESTEROL LEVEL 169 MG/DL (<200); CHOLESTEROL RISK RATIO 2.63 (<5); CREATININE FOR GFR 0.62 MG/DL (0.70-1.30); CREATININE, URINE 86.4 MG/DL; GLOMERULAR FILTRATION RATE > 60.0 (>56); GLUCOSE, FASTING 95 MG/DL (60-100); HDL CHOLESTEROL 64.2 MG/DL (>40); LDL CHOLESTEROL 88.6 MG/DL (<100); MAU/CREAT RATIO 4.6 MCG/MG (0.0-30.0); NON-HDL-C 104.8 MG/DL; POTASSIUM SERUM 4.3 MMOL/L (3.5-5.1); SODIUM LEVEL 139 MMOL/L (136-145); TOTAL PROTEIN 7.1 G/DL (5.7-8.2); TRIGLYCERIDES LEVEL 81 MG/DL (<150)
[2022-07-25 11:55] LABS: HEMOGLOBIN A1c 5.8 % (4.0-6.0)
== END ==
LOC: M PLALAB 08:45
PROVIDERS: ATTEND Nurse Practitioner Family
DX: R56.9 Unspecified convulsions (principal); E11.9 Type 2 diabetes mellitus without complications; E78.5 Hyperlipidemia, unspecified

== ENCOUNTER 2022-07-31 10:20 | Outpatient (RCR) | payer MEDICARE | END 2022-08-06 | LOC: M ST 10:20 | PROVIDERS: ATTEND Nurse Practitioner Family | DX: I69.351 Hemiplegia and hemiparesis following cerebral infarction affecting right dominant side (principal); I69.320 Aphasia following cerebral infarction ==

== ENCOUNTER 2022-09-04 10:30 | Outpatient (RCR) | payer MEDICARE | END 2022-09-05 | LOC: M ST 10:30 | PROVIDERS: ATTEND Nurse Practitioner Family | DX: I69.351 Hemiplegia and hemiparesis following cerebral infarction affecting right dominant side (principal); I69.320 Aphasia following cerebral infarction ==

== ENCOUNTER 2022-10-02 10:19 | Outpatient (RCR) | payer MEDICARE | END 2022-10-06 | LOC: M ST 10:19 | PROVIDERS: ATTEND Nurse Practitioner Family | DX: G81.91 Hemiplegia, unspecified affecting right dominant side (principal); R47.01 Aphasia ==

== ENCOUNTER → 2022-11-06 | Outpatient (RCR) | payer MEDICARE | LOC: M ST 10-16 10:21 | PROVIDERS: ATTEND Nurse Practitioner Family | DX: G81.91 Hemiplegia, unspecified affecting right dominant side (principal); I63.9 Cerebral infarction, unspecified; R47.01 Aphasia ==

== ENCOUNTER 2023-01-01 10:19 | Outpatient (RCR) | payer MEDICARE | END 2023-01-06 | LOC: M ST 10:19 | PROVIDERS: ATTEND Nurse Practitioner Family | DX: I69.351 Hemiplegia and hemiparesis following cerebral infarction affecting right dominant side (principal); I69.320 Aphasia following cerebral infarction ==

== ENCOUNTER → 2023-01-07 | Outpatient (CLI) | payer MEDICARE ==
[2023-01-07 10:31] LABS: BASO % 0.4 % (0.0-1.0); EOS # 0.1 10^3/uL (0.0-0.5); EOS % 1.7 % (0.0-3.0); HEMATOCRIT 44.6 % (42.0-52.0); HEMOGLOBIN 14.9 g/dl (13.5-17.5); LYMPH # 1.8 10^3/uL (1.5-5.0); LYMPH % 37.9 % (24.0-44.0); MEAN CORPUSCULAR HEMOGLOBIN 31.9 pg (27.0-33.0); MEAN CORPUSCULAR HGB CONC 33.4 g/dl (32.0-36.5); MEAN CORPUSCULAR VOLUME 95.5 fl (80.0-96.0); MONO # 0.5 10^3/uL (0.0-0.8); MONO % 11.3 % (2.0-8.0); NEUTROPHILS # 2.2 10^3/uL (1.5-8.5); NEUTROPHILS % 48.5 % (36.0-66.0); PLATELET COUNT, AUTOMATED 185 10^3/uL (150-450); RED BLOOD COUNT 4.67 10^6/uL (4.30-6.10); WHITE BLOOD COUNT 4.6 10^3/uL (4.0-10.0)
[2023-01-07 10:55] LABS: HEMOGLOBIN A1c 5.6 % (4.0-6.0)
[2023-01-07 11:02] LABS: CREATININE, URINE 116.3 MG/DL; MAU/CREAT RATIO 6.8 MCG/MG (0.0-30.0)
[2023-01-07 11:04] LABS: PHENYTOIN (DILANTIN) 9.2 UG/ML (10.0-20.0)
[2023-01-07 11:06] LABS: ALBUMIN 4.1 G/DL (3.2-5.2); ALKALINE PHOSPHATASE 61 U/L (46-116); ALT/SGPT 42 U/L (7.0-40); AST/SGOT 20 U/L (<34); BILIRUBIN,TOTAL 0.3 MG/DL (0.3-1.2); BLOOD UREA NITROGEN 8 MG/DL (9-23); CALCIUM LEVEL 9.3 MG/DL (8.5-10.1); CARBON DIOXIDE LEVEL 30 MMOL/L (20-31); CHLORIDE LEVEL 102 MMOL/L (98-107); CHOLESTEROL LEVEL 141 MG/DL (<200); GLOMERULAR FILTRATION RATE > 60.0 (>56); GLUCOSE, FASTING 120 MG/DL (60-100); HDL CHOLESTEROL 61.3 MG/DL (>40); LDL CHOLESTEROL 70.7 MG/DL (<100); NON-HDL-C 79.7 MG/DL; POTASSIUM SERUM 4.1 MMOL/L (3.5-5.1); SODIUM LEVEL 139 MMOL/L (136-145); TOTAL PROTEIN 6.7 G/DL (5.7-8.2); TRIGLYCERIDES LEVEL 45 MG/DL (<150)
== END ==
LOC: M PLALAB 08:08
PROVIDERS: ATTEND Nurse Practitioner Family
DX: E11.9 Type 2 diabetes mellitus without complications (principal); E78.5 Hyperlipidemia, unspecified; R56.9 Unspecified convulsions

== ENCOUNTER → 2023-02-05 | Outpatient (RCR) | payer MEDICARE | LOC: M ST 01-15 10:16 | PROVIDERS: ATTEND Nurse Practitioner Family | DX: G81.91 Hemiplegia, unspecified affecting right dominant side (principal); I63.9 Cerebral infarction, unspecified; R47.01 Aphasia ==

== ENCOUNTER 2023-03-05 10:30 | Outpatient (RCR) | payer MEDICARE | END 2023-03-08 | LOC: M ST 10:30 | PROVIDERS: ATTEND Nurse Practitioner Family | DX: G81.91 Hemiplegia, unspecified affecting right dominant side (principal); R47.01 Aphasia; I63.9 Cerebral infarction, unspecified ==

== ENCOUNTER 2023-04-02 10:21 | Outpatient (RCR) | payer MEDICARE | END 2023-04-08 | LOC: M ST 10:21 | PROVIDERS: ATTEND Nurse Practitioner Family | DX: G81.91 Hemiplegia, unspecified affecting right dominant side (principal); R47.01 Aphasia ==

== ENCOUNTER → 2023-05-07 | Outpatient (RCR) | payer MEDICARE ==
[~2023-05-07] MED LIST changes: -ASPI-161 PO; +ASPI-615 PO; +GNP250TA9 PO; +VITA100093 PO
== END ==
LOC: M ST 04-09 10:31
PROVIDERS: ATTEND Nurse Practitioner Family
DX: R47.01 Aphasia (principal)

== ENCOUNTER 2023-05-21 09:24 | Day surgery (SDC) | payer MEDICARE ==
[~2023-05-21] VITALS: Ht 177.8 cm; Wt 69.4 kg
[2023-05-21] MEDS: NS 1,000 ML IV ONE (09:51)
[2023-05-21] MEDS ORDERED: fentaNYL 100 MCG/2 ML INJECTION As Ordered ONE (10:24)
[2023-05-21] MEDS ORDERED: propofoL 200 MG/20 ML VIAL As Ordered ONE (10:33)
[2023-05-21 10:39] VITALS: TEMP 97.4
[2023-05-21 11:00] VITALS: BP 106/59; O2SAT 100
== END 2023-05-21 11:15 | disposition home or self-care (01) ==
LOC: M OPP 09:24
PROVIDERS: ATTEND Internal Medicine Gastroenterology
DX: Z12.11 Encounter for screening for malignant neoplasm of colon (principal); K64.8 Other hemorrhoids; E11.9 Type 2 diabetes mellitus without complications; Z87.891 Personal history of nicotine dependence; Z79.02 Long term (current) use of antithrombotics/antiplatelets; Z79.82 Long term (current) use of aspirin; Z79.84 Long term (current) use of oral hypoglycemic drugs; Z79.899 Other long term (current) drug therapy
CPT/HCPCS: G0121; J3010

== ENCOUNTER 2023-06-04 10:30 | Outpatient (RCR) | payer MEDICARE | END 2023-06-07 | LOC: M ST 10:30 | PROVIDERS: ATTEND Nurse Practitioner Family | DX: R47.01 Aphasia (principal) ==

== ENCOUNTER 2023-06-18 10:30 | Outpatient (RCR) | payer MEDICARE | END 2023-07-07 | LOC: M ST 10:30 | PROVIDERS: ATTEND Nurse Practitioner Family | DX: G81.91 Hemiplegia, unspecified affecting right dominant side (principal); I63.9 Cerebral infarction, unspecified; R47.01 Aphasia ==

== ENCOUNTER 2023-08-06 10:30 | Outpatient (RCR) | payer MEDICARE | END 2023-08-07 | LOC: M ST 10:30 | PROVIDERS: ATTEND Nurse Practitioner Family | DX: I69.351 Hemiplegia and hemiparesis following cerebral infarction affecting right dominant side (principal); I69.320 Aphasia following cerebral infarction ==

== ENCOUNTER 2023-09-01 10:15 | Outpatient (RCR) | payer MEDICARE | END 2023-09-06 | LOC: M ST 10:15 | PROVIDERS: ATTEND Nurse Practitioner Family | DX: G81.91 Hemiplegia, unspecified affecting right dominant side (principal); I63.9 Cerebral infarction, unspecified; R47.01 Aphasia ==

== ENCOUNTER → 2023-09-18 | Outpatient (CLI) | payer MEDICARE ==
[2023-09-18 11:35] LABS: BASO % 0.4 % (0.0-1.0); EOS # 0.1 10^3/uL (0.0-0.5); EOS % 1.5 % (0.0-3.0); HEMATOCRIT 44.9 % (42.0-52.0); LYMPH % 37.2 % (24.0-44.0); MEAN CORPUSCULAR HEMOGLOBIN 32.5 pg (27.0-33.0); MEAN CORPUSCULAR HGB CONC 33.4 g/dl (32.0-36.5); MEAN CORPUSCULAR VOLUME 97.4 fl (80.0-96.0); MONO # 0.5 10^3/uL (0.0-0.8); MONO % 9.7 % (2.0-8.0); NEUTROPHILS # 2.7 10^3/uL (1.5-8.5); PHENYTOIN (DILANTIN) 8.3 UG/ML (10.0-20.0); PLATELET COUNT, AUTOMATED 181 10^3/uL (150-450); RED BLOOD COUNT 4.61 10^6/uL (4.30-6.10); WHITE BLOOD COUNT 5.4 10^3/uL (4.0-10.0)
[2023-09-18 11:37] LABS: ALBUMIN 4.3 G/DL (3.2-5.2); ALKALINE PHOSPHATASE 54 U/L (46-116); ALT/SGPT 42 U/L (7.0-40); AST/SGOT 15 U/L (<34); BILIRUBIN,TOTAL 0.3 MG/DL (0.3-1.2); BLOOD UREA NITROGEN 15 MG/DL (9-23); CALCIUM LEVEL 9.6 MG/DL (8.5-10.1); CARBON DIOXIDE LEVEL 31 MMOL/L (20-31); CHLORIDE LEVEL 105 MMOL/L (98-107); CHOLESTEROL LEVEL 164 MG/DL (<200); CHOLESTEROL RISK RATIO 2.59 (<5); CREATININE FOR GFR 0.65 MG/DL (0.70-1.30); GLOMERULAR FILTRATION RATE > 60.0 (>56); GLUCOSE, FASTING 132 MG/DL (60-100); HDL CHOLESTEROL 63.3 MG/DL (>40); LDL CHOLESTEROL 86.1 MG/DL (<100); NON-HDL-C 100.7 MG/DL; SODIUM LEVEL 140 MMOL/L (136-145); TOTAL PROTEIN 6.7 G/DL (5.7-8.2); TRIGLYCERIDES LEVEL 73 MG/DL (<150)
[2023-09-18 12:08] LABS: CREATININE, URINE 122.9 MG/DL
[2023-09-18 12:09] LABS: MAU/CREAT RATIO 3.2 MCG/MG (0.0-30.0)
[2023-09-18 13:12] LABS: HEMOGLOBIN A1c 5.9 % (4.0-6.0)
== END ==
LOC: M PLALAB 08:14
PROVIDERS: ATTEND Nurse Practitioner Family
DX: R56.9 Unspecified convulsions (principal); E11.9 Type 2 diabetes mellitus without complications; E78.5 Hyperlipidemia, unspecified

== ENCOUNTER → 2024-01-21 | Outpatient (CLI) | payer MEDICARE ==
[2024-01-21 10:45] LABS: BASO % 0.6 % (0.0-1.0); EOS # 0.1 10^3/uL (0.0-0.5); EOS % 1.1 % (0.0-3.0); HEMATOCRIT 46.5 % (42.0-52.0); HEMOGLOBIN 15.7 g/dl (13.5-17.5); LYMPH # 1.9 10^3/uL (1.5-5.0); MEAN CORPUSCULAR HGB CONC 33.8 g/dl (32.0-36.5); MEAN CORPUSCULAR VOLUME 97.7 fl (80.0-96.0); MONO # 0.5 10^3/uL (0.0-0.8); MONO % 10.1 % (2.0-8.0); NEUTROPHILS # 2.7 10^3/uL (1.5-8.5); PLATELET COUNT, AUTOMATED 189 10^3/uL (150-450); RED BLOOD COUNT 4.76 10^6/uL (4.30-6.10); WHITE BLOOD COUNT 5.3 10^3/uL (4.0-10.0)
[2024-01-21 11:11] LABS: CREATININE, URINE 158.3 MG/DL; MAU/CREAT RATIO 7.5 MCG/MG (0.0-30.0)
[2024-01-21 11:12] LABS: ALBUMIN 4.4 G/DL (3.2-5.2); ALKALINE PHOSPHATASE 69 U/L (40-129); ALT/SGPT 50 U/L (7.0-40); AST/SGOT 21 U/L (<34); BILIRUBIN,TOTAL 0.5 MG/DL (0.3-1.2); BLOOD UREA NITROGEN 13 MG/DL (9-23); CARBON DIOXIDE LEVEL 32 MMOL/L (20-31); CHLORIDE LEVEL 103 MMOL/L (98-107); CHOLESTEROL LEVEL 189 MG/DL (<200); CREATININE FOR GFR 0.69 MG/DL (0.70-1.30); GLOMERULAR FILTRATION RATE > 60.0 (>56); GLUCOSE, FASTING 119 MG/DL (60-100); HDL CHOLESTEROL 67.5 MG/DL (>40); LDL CHOLESTEROL 107.3 MG/DL (<100); NON-HDL-C 121.5 MG/DL; POTASSIUM SERUM 4.8 MMOL/L (3.5-5.1); PSA SCREENING 0.28 NG/ML (< 4.00); SODIUM LEVEL 139 MMOL/L (136-145); TOTAL PROTEIN 7.7 G/DL (5.7-8.2); TRIGLYCERIDES LEVEL 71 MG/DL (<150)
[2024-01-21 11:14] LABS: FREE T4 1.35 NG/DL (0.89-1.76)
[2024-01-21 11:15] LABS: THYROID STIMULATING HORMONE 1.611 uIU/ML (0.55-4.78)
== END ==
LOC: M PLALAB 08:57
PROVIDERS: ATTEND Nurse Practitioner Family
DX: E11.9 Type 2 diabetes mellitus without complications (principal); Z12.5 Encounter for screening for malignant neoplasm of prostate; E55.9 Vitamin D deficiency, unspecified; E78.5 Hyperlipidemia, unspecified; R56.9 Unspecified convulsions
CPT/HCPCS: 36415; 80053; 80061; 82043; 82652; 83036; 84439; 84443; 85025; G0103

== ENCOUNTER → 2024-07-07 | Outpatient (CLI) | payer MEDICARE ==
[2024-07-07 10:15] LABS: PHENYTOIN (DILANTIN) 7.8 UG/ML (10.0-20.0)
[2024-07-07 10:17] LABS: ALBUMIN 4.1 G/DL (3.2-5.2); ALKALINE PHOSPHATASE 59 U/L (40-129); ALT/SGPT 33 U/L (7.0-40); AST/SGOT 21 U/L (<34); BILIRUBIN,TOTAL 0.3 MG/DL (0.3-1.2); BLOOD UREA NITROGEN 16 MG/DL (9-23); CALCIUM LEVEL 9.2 MG/DL (8.5-10.1); CARBON DIOXIDE LEVEL 30 MMOL/L (20-31); CHLORIDE LEVEL 103 MMOL/L (98-107); CHOLESTEROL LEVEL 192 MG/DL (<200); CHOLESTEROL RISK RATIO 2.62 (<5); CREATININE FOR GFR 0.65 MG/DL (0.70-1.30); GLOMERULAR FILTRATION RATE > 90.0 (>56); GLUCOSE, FASTING 134 MG/DL (60-100); HDL CHOLESTEROL 73.1 MG/DL (>40); LDL CHOLESTEROL 104.1 MG/DL (<100); NON-HDL-C 118.9 MG/DL; POTASSIUM SERUM 4.8 MMOL/L (3.5-5.1); SODIUM LEVEL 137 MMOL/L (136-145); TRIGLYCERIDES LEVEL 74 MG/DL (<150)
[2024-07-07 10:21] LABS: BASO % 0.4 % (0.0-1.0); EOS # 0.1 10^3/uL (0.0-0.5); EOS % 1.1 % (0.0-3.0); HEMATOCRIT 42.8 % (42.0-52.0); HEMOGLOBIN 14.4 g/dl (13.5-17.5); LYMPH # 1.8 10^3/uL (1.5-5.0); LYMPH % 38.9 % (24.0-44.0); MEAN CORPUSCULAR HEMOGLOBIN 32.5 pg (27.0-33.0); MEAN CORPUSCULAR HGB CONC 33.6 g/dl (32.0-36.5); MEAN CORPUSCULAR VOLUME 96.6 fl (80.0-96.0); MONO # 0.5 10^3/uL (0.0-0.8); MONO % 10.5 % (2.0-8.0); NEUTROPHILS # 2.2 10^3/uL (1.5-8.5); NEUTROPHILS % 48.9 % (36.0-66.0); PLATELET COUNT, AUTOMATED 201 10^3/uL (150-450); RED BLOOD COUNT 4.43 10^6/uL (4.30-6.10); WHITE BLOOD COUNT 4.6 10^3/uL (4.0-10.0)
[2024-07-07 10:32] LABS: HEMOGLOBIN A1c 6.1 % (4.0-6.0)
[2024-07-07 10:40] LABS: CREATININE, URINE 30.9 MG/DL; MALB URINE SIEMENS < 3.0 MG/L
== END ==
LOC: M PLALAB 08:43
PROVIDERS: ATTEND Nurse Practitioner Family
DX: E55.9 Vitamin D deficiency, unspecified (principal); E11.9 Type 2 diabetes mellitus without complications; E78.5 Hyperlipidemia, unspecified; R56.9 Unspecified convulsions

== ENCOUNTER → 2025-01-20 | Outpatient (CLI) | payer MEDICARE ==
[2025-01-20 14:17] LABS: BASO # 0.0 10^3/uL (0.0-0.2); BASO % 0.4 % (0.0-1.0); EOS # 0.1 10^3/uL (0.0-0.5); EOS % 1.3 % (0.0-3.0); LYMPH # 1.8 10^3/uL (1.5-5.0); LYMPH % 34.7 % (24.0-44.0); MONO # 0.5 10^3/uL (0.0-0.8); MONO % 10.2 % (2.0-8.0); NEUTROPHILS # 2.8 10^3/uL (1.5-8.5); NEUTROPHILS % 53.2 % (36.0-66.0); PLATELET COUNT, AUTOMATED 202 10^3/uL (150-450)
[2025-01-20 14:48] LABS: ESTIMATED AVERAGE GLUCOSE 151.0 MG/DL (60-110)
[2025-01-20 15:03] LABS: PSA SCREENING 0.27 NG/ML (< 4.00)
[2025-01-20 15:08] LABS: ALT/SGPT 41 U/L (7.0-40); AST/SGOT 30 U/L (<34); CALCIUM LEVEL 9.3 MG/DL (8.5-10.1); CARBON DIOXIDE LEVEL 30 MMOL/L (20-31); CHLORIDE LEVEL 103 MMOL/L (98-107); CHOLESTEROL LEVEL 176 MG/DL (<200); CHOLESTEROL RISK RATIO 2.59 (<5); CREATININE FOR GFR 0.69 MG/DL (0.70-1.30); GLOMERULAR FILTRATION RATE > 90.0 (>56); LDL CHOLESTEROL 95.9 MG/DL (<100); NON-HDL-C 108.3 MG/DL; POTASSIUM SERUM 4.6 MMOL/L (3.5-5.1); SODIUM LEVEL 141 MMOL/L (136-145); TRIGLYCERIDES LEVEL 62 MG/DL (<150)
[2025-01-20 15:30] LABS: CREATININE, URINE 47.7 MG/DL; MALB URINE SIEMENS < 3.0 MG/L
== END ==
LOC: M PLALAB 08:55
PROVIDERS: ATTEND Nurse Practitioner Family
DX: E55.9 Vitamin D deficiency, unspecified (principal); Z12.5 Encounter for screening for malignant neoplasm of prostate; R56.9 Unspecified convulsions; E11.9 Type 2 diabetes mellitus without complications; E78.5 Hyperlipidemia, unspecified
CPT/HCPCS: 36415; 80053; 80061; 80177; 80185; 82043; 82652; 83036; 85025; G0103